=== PATIENT | female | born 1995 | race Caucasian/White ===

== ENCOUNTER 2021-10-03 09:13 | Inpatient (IN) | payer BC ==
[2021-10-03] MEDS ORDERED: Ondansetron 4 MG/2 ML SDV IVPUSH PRN (10:11)
[2021-10-03] MEDS ORDERED: Nalbuphine HCl 10 MG/ 1ML Amp IVPUSH PRN (10:11)
[2021-10-03] MEDS ORDERED: Sodium Chloride 0.9% 10 ML Syringe FLUSH PRN (10:11)
[2021-10-03] MEDS ORDERED: Lactated Ringers 1,000 ML IV SCH (10:15)
[2021-10-03] MEDS ORDERED: Oxytocin/Lactated Ringers 10 UNIT/1,000 ML BAG IV SCH (10:15)
[2021-10-03] MEDS ORDERED: Ibuprofen 600 MG Tab PO PRN (16:44)
[2021-10-03] MEDS ORDERED: Witch Hazel Medicated Pads 40/Jar TOP PRN ×2 (17:28→20:33)
[2021-10-03] MEDS ORDERED: Benzocaine/Menthol 20%-0.5% Spray 78 GM Cannister TOP PRN ×2 (17:29→20:33)
[2021-10-03] MEDS ORDERED: Acetaminophen 325 MG Tab PO PRN ×2 (19:56→20:33)
[2021-10-03] MEDS ORDERED: Sodium Chloride 0.9% 10 ML Syringe FLUSH SCH (21:00)
[2021-10-03] MEDS ORDERED: Docusate Sodium 100 MG Cap PO SCH (21:00)
[2021-10-04] MEDS: Ibuprofen 600 MG Tab PO PRN ×2 (04:59→13:09)
[2021-10-04] MEDS ORDERED: Prenatal Multivitamin with Calcium/Folic Acid/Iron Tab PO SCH (09:00)
== END 2021-10-04 16:00 | disposition home or self-care (01) | DRG 560 ==
LOC: JD.OBCHECK 09:13 → JD.OB 09:16 → JD.OBCHECK 10:11 → JD.OB 11:02 → OBSVTOIN 15:14 → JD.OB 15:15
PROVIDERS: ADMIT Obstetrics & Gynecology; ATTEND Obstetrics & Gynecology
PROC: 10E0XZZ Delivery of Products of Conception, External Approach (ICD-10-PCS; principal; 2021-10-03)
DX: O48.0 Post-term pregnancy (principal); Z3A.40 40 weeks gestation of pregnancy; Z37.0 Single live birth
CPT/HCPCS: 36415; 59025; 59409; 85025; 86592; A9270-GY